=== PATIENT | female | born 1970 | race Caucasian/White ===

== ENCOUNTER 2021-03-21 08:35 | Day surgery (SDC) | payer BC ==
[2021-03-21] MEDS ORDERED: propofoL 50 ML ONE ×2 (08:54→12:11)
[2021-03-21] MEDS ORDERED: Lactated Ringers 1,000 ML IV SCH ×2 (09:30→12:15)
--- NOTE | 2021-03-21 10:33 | PCM.PREANE ---
Preanesthetic Assessment - Anesthesia/Transfusion/Family Hx Anesthesia History: Prior Anesthesia Without Reaction Transfusion History: No Prior Transfusion(s) - Review of Systems General: No Symptoms Pulmonary: No Symptoms Cardiovascular: No Symptoms Gastrointestinal: No Symptoms Neurological: No Symptoms Other: Reports: None - Physical Assessment NPO Status Date: 03/19/21 NPO Status Time: 21:00 Vital Signs: Last Vital Signs Temp 97.7 F 03/21/21 09:35 Pulse 54 L 03/21/21 09:35 Resp 16 03/21/21 09:35 BP 118/61 03/21/21 09:35 Pulse Ox 100 03/21/21 09:35 Height: 5 ft 1 in Weight: 64.41 kg ASA Class: 2 Mental Status: Alert & Oriented x3 Airway Class: Mallampati = 1 Dentition: Reports: Normal Dentition Thyro-Mental Finger Breadths: 3 Mouth Opening Finger Breadths: 3 ROM/Head Extension: Full Lungs: Clear to Auscultation, Normal Respiratory Effort Cardiovascular: Regular Rate, Regular Rhythm - Lab Values: Laboratory Last Values SARS-CoV-2 RNA (ZAIDA) NEGATIVE (NEGATIVE) 03/21/21 08:35 - Allergies Allergies/Adverse Reactions: Allergies Allergy/AdvReac Type Severity Reaction Status Date / Time meperidine [From Demerol] Allergy "syncope & Verified 03/15/21 14:36 nausea" tramadol Allergy "out of Verified 03/15/21 14:36 body experience" - Acknowledgements Anesthesia Type Planned: General Anesthesia Pt an Appropriate Candidate for the Planned Anesthesia: Yes Alternatives and Risks of Anesthesia Discussed w Pt/Guardian: Yes Pt/Guardian Understands and Agrees with Anesthesia Plan: Yes PreAnesthesia Questionnaire HEENT History: Reports: Other (See Below) Other HEENT History: wears glasses Cardiovascular History: Reports: Blood Clots/VTE/DVT, High Cholesterol Other Cardiovascular History: blood clot to left leg & 2 to right arm, has bleeding disorder Respiratory History: Reports: None Gastrointestinal History: Reports: Other (See Below) Other Gastrointestinal History: microscopic colitis Genitourinary History: Reports: Other (See Below) Other Genitourinary History: cyst on both kidneys [employer] History: Reports: Musculoskeletal History: Reports: Back Pain, Chronic, Fracture, Neck Pain, Chronic, RA Other Musculoskeletal History: hx fx left wrist Neurological History: Reports: Migraines Psychiatric History: Reports: None Endocrine/Metabolic History: Reports: None Hematologic History: Reports: Bleeding Disorder, Other (See Below) Other Hematologic History: factor V, MTHFR, Leonard's viper venom Immunologic History: Reports: None Oncologic (Cancer) History: Reports: None Dermatologic History: Reports: Other (See Below) Other Dermatologic History: lichen planus - Past Surgical History Head Surgeries/Procedures: Reports: None HEENT Surgical History: Reports: None Cardiovascular Surgical History: Reports: None Respiratory Surgical History: Reports: None GI Surgical History: Reports: Appendectomy, Bariatric Procedure, Colonoscopy Other GI Surgeries/Procedures: gastric sleeve Endocrine Surgical History: Reports: None Neurological Surgical History: Reports: None Musculoskeletal Surgical History: Reports: Shoulder Surgery, Other (See Below) Other Musculoskeletal Surgeries/Procedures:: labral repair to rt hip, ligament repair-left ankle, amputation to tip of 2nd toe-left foot, right RTCR Oncologic Surgical History: Reports: None Dermatological Surgical History: Reports: None - SUBSTANCE USE Tobacco Use Within Last Twelve Months: Cigarettes - HOME MEDS Home Medications: Home Meds Ascorbate Calcium [Vitamin C] 500 mg PO DAILY 03/15/21 [History] Aspirin [Adult Aspirin Regimen] 81 mg PO DAILY 03/15/21 [History] Cholecalciferol (Vitamin D3) [Vitamin D3] 5,000 units PO DAILY 03/15/21 [History] Cyanocobalamin (Vitamin B-12) [Cyanocobalamin Injection] 1 injection IM ASDIRE CTED 03/15/21 [History] Diclofenac Sodium [Voltaren] 1 applic TOP ASDIRECTED PRN 03/15/21 [History] Folic Acid 1 mg PO DAILY 03/15/21 [History] Methotrexate/PF [Reditrex 25 mg/ml Syringe] 20 ml SUBCUT WEEKLY 03/15/21 [History] Rizatriptan Benzoate [Rizatriptan] 5 mg PO ASDIRECTED PRN 03/15/21 [History] Rosuvastatin Calcium 20 mg PO DAILY 03/15/21 [History] Varenicline Tartrate 1 mg PO BID 03/15/21 [History] traZODone HCl [Trazodone HCl] 50 mg PO BEDTIME PRN 03/15/21 [History] - CURRENT (IN HOUSE) MEDS Current Meds: Current Medications Lactated Ringer's (Ringers, Lactated) 1,000 mls @ 125 mls/hr IV ASDIRECTED JANELLE Discontinued Medications Propofol (Diprivan 50 Ml) Confirm Administered Dose 50 mls @ as directed .ROUTE .[facility] ONE Stop: 03/21/21 08:55
--- NOTE | 2021-03-21 12:02 | PCM48HPAN ---
Post Anesthesia Note - EVALUATION WITHIN 48HRS OF ANESTHETIC Vital Signs in Normal Range: Yes Patient Participated in Evaluation: Yes Respiratory Function Stable: Yes Airway Patent: Yes Cardiovascular Function Stable: Yes Hydration Status Stable: Yes Pain Control Satisfactory: Yes Nausea and Vomiting Control Satisfactory: Yes Mental Status Recovered: Yes Vital Signs: Last Vital Signs Temp 97.7 F 03/21/21 09:35 Pulse 54 L 03/21/21 09:35 Resp 16 03/21/21 09:35 BP 118/61 03/21/21 09:35 Pulse Ox 100 03/21/21 09:35
--- NOTE | 2021-03-21 12:02 | PCM.POSTAN ---
POST ANESTHESIA ASSESSMENT - MENTAL STATUS Mental Status: Alert, Oriented - VITAL SIGNS Vital Signs: Last Vital Signs Temp 97.7 F 03/21/21 09:35 Pulse 54 L 03/21/21 09:35 Resp 16 03/21/21 09:35 BP 118/61 03/21/21 09:35 Pulse Ox 100 03/21/21 09:35 - RESPIRATORY Respiratory Status: Respiratory Rate WNL, Airway Patent, O2 Saturation Stable - CARDIOVASCULAR CV Status: Pulse Rate WNL, Blood Pressure Stable - GASTROINTESTINAL GI Status: No Symptoms - POST OP HYDRATION Hydration Status: Adequate & Stable
--- NOTE | 2021-03-21 12:06 | PCM.OPNOTE ---
- General Post-Op/Procedure Note Date of Surgery/Procedure: 03/21/21 Operative Procedure(s): Colonoscopy with distal transverse colon. Pre Op Diagnosis: History of microscopic colitis. Desire for colorectal cancer screening. Post-Op Diagnosis: No evidence of neoplasia. Anesthesia Technique: MAC (ASA III) Primary Surgeon: Jhonny Gustafson Condition: Good Free Text/Narrative:: DICTATION [id number] CPT CODE [id number]
--- NOTE | 2021-03-21 21:56 | OR ---
SURGEON: Jhonny Gustafson M.D. DATE OF PROCEDURE: 03/21/2021 OPERATION PERFORMED: Colonoscopy with distal transverse colon biopsy. PRIMARY SURGEON: Jhonny Gustafson M.D. ANESTHESIA: MAC. ASA CLASSIFICATION: III. PREOPERATIVE DIAGNOSES: 1. Desire for colorectal cancer screening. 2. History of microscopic colitis. POSTOPERATIVE DIAGNOSES: 1. Desire for colorectal cancer screening. 2. History of microscopic colitis. ESTIMATED BLOOD LOSS: Minimal. DESCRIPTION OF PROCEDURE: The patient was taken to the endoscopy room and positioned on the endoscopy table in the left lateral decubitus position. Time-out was called for appropriate identification of the patient and procedure. Monitored anesthesia care was provided. The colonoscope was inserted into the rectum and advanced with moderate difficulty to the cecum. The cecum was identified by internal landmarks and external pressure. The colonoscope was retroflexed to visualize the ascending colon from below, then straightened and slowly withdrawn. The cecum, ascending colon, hepatic flexure, transverse colon, splenic flexure showed no significant acute inflammatory changes. With her history of microscopic colitis, I did elect to take some random biopsies from the distal transverse colon, although I saw no acute inflammatory changes or ulcerations. The descending colon, sigmoid colon, and rectum were also very well visualized. Again, no acute inflammatory changes or ulcerations were noted. Once the colonoscope was withdrawn to the rectum, it was retroflexed to visualize the anal orifice from above. Again, no tumors or polyps were seen and there were no acute hemorrhoidal changes. The colonoscope was then straightened, the rectum aspirated, and the colonoscope removed. The patient tolerated the procedure well and was taken to recovery room in stable condition. DARREN / REYNOLD /[id number]
== END 2021-03-21 12:30 | disposition home or self-care (01) ==
LOC: MW.SDS 08:35
PROVIDERS: ATTEND Surgery
DX: Z12.11 Encounter for screening for malignant neoplasm of colon (principal); Z87.19 Personal history of other diseases of the digestive system; Z88.5 Allergy status to narcotic agent; Z87.891 Personal history of nicotine dependence; M06.9 Rheumatoid arthritis, unspecified; Z01.812 Encounter for preprocedural laboratory examination; Z79.899 Other long term (current) drug therapy; Z90.49 Acquired absence of other specified parts of digestive tract; Z98.890 Other specified postprocedural states; Z20.822 Contact with and (suspected) exposure to COVID-19
CPT/HCPCS: 45380; 87635; J2704; J7120; 00812; U0002